=== PATIENT | female | born 1990 | race Caucasian/White ===

== ENCOUNTER 2017-09-10 12:57 | Emergency (ER) | payer OTHER ==
[~2017-09-10] VITALS: Ht 162.6 cm; Wt 135.6 kg
[2017-09-10] MEDS ORDERED: Catapres0.1 MG PO (13:19)
== END 2017-09-10 13:23 | disposition home or self-care (01) ==
LOC: ER 12:57
DX: S61.012A Laceration without foreign body of left thumb without damage to nail, initial encounter (principal); Z76.0 Encounter for issue of repeat prescription; J45.909 Unspecified asthma, uncomplicated; F31.9 Bipolar disorder, unspecified; F20.9 Schizophrenia, unspecified; W26.8XXA Contact with other sharp object(s), not elsewhere classified, initial encounter
CPT/HCPCS: 99283

== ENCOUNTER 2018-08-06 14:05 | Emergency (ER) | payer OTHER ==
[~2018-08-06] VITALS: Ht 162.6 cm; Wt 142.0 kg
[~2018-08-06 14:05] MED LIST: Catapres0.1 MG PO
[2018-08-06] MEDS ORDERED: ARIP30 PO ×2 (14:13→14:35)
[2018-08-06] MEDS ORDERED: BUSP15 PO ×2 (14:14→14:35)
[2018-08-06] MEDS ORDERED: Oxcarbazepine150 MG PO ×2 (14:14→14:35)
[2018-08-06] MEDS ORDERED: Catapres0.1 MG PO (14:35)
== END 2018-08-06 14:41 | disposition home or self-care (01) ==
LOC: ER 14:05
DX: Z76.0 Encounter for issue of repeat prescription (principal); F31.9 Bipolar disorder, unspecified; G40.909 Epilepsy, unspecified, not intractable, without status epilepticus; F41.9 Anxiety disorder, unspecified; I10 Essential (primary) hypertension; J45.909 Unspecified asthma, uncomplicated; Z79.899 Other long term (current) drug therapy
CPT/HCPCS: 99281

== ENCOUNTER 2018-08-08 10:08 | Emergency (ER) | payer OTHER ==
[~2018-08-08] VITALS: Ht 162.6 cm; Wt 136.1 kg
[~2018-08-08 10:08] MED LIST changes: +ARIP30 PO; +BUSP15 PO; +Oxcarbazepine150 MG PO
[2018-08-08] MEDS ORDERED: CLON.1 (15:51)
[2018-08-08] MEDS ORDERED: HALO5 PO (16:49)
[2018-08-08] MEDS ORDERED: BENADRYL25 MG PO (16:49)
[2018-08-08] MEDS ORDERED: FLUO10 PO (16:49)
== END 2018-08-08 17:23 | disposition home or self-care (01) ==
LOC: ER 10:08
DX: F41.9 Anxiety disorder, unspecified (principal); Z88.1 Allergy status to other antibiotic agents; Z76.0 Encounter for issue of repeat prescription; Z79.899 Other long term (current) drug therapy; F31.9 Bipolar disorder, unspecified; F25.9 Schizoaffective disorder, unspecified; I10 Essential (primary) hypertension
CPT/HCPCS: 99284; Q3014